=== PATIENT | female | born 2000 | race African-American/Black ===

== ENCOUNTER 2021-12-29 02:37 | Emergency (ER) | payer OTHER ==
[~2021-12-29] VITALS: Ht 165.1 cm; Wt 61.9 kg
[2021-12-29 02:49] VITALS: BP 116/73
[2021-12-29] MEDS ORDERED: LIDOCAINE MPF 1% 15 ML ONE (02:58)
--- NOTE | 2021-12-29 03:02 | NUR ---
RECEIVED VERBAL ORDER FOR 150MG OF LIDOCAINE 1% TO NUMB SITE. PT IN [facility] PERFORMING PROCEDURE THERE.
--- NOTE | 2021-12-29 03:05 | NUR ---
The patient's care was reviewed and supervised by Yessy Cox RN, RN.
[2021-12-29] MEDS ORDERED: LIDOCAINE MPF 1% 10 MG/ML VIAL INJ ONE (03:10)
[2021-12-29] MEDS ORDERED: AMOXICILLIN 500 MG CAP PO ONE (03:10)
[2021-12-29] MEDS ORDERED: IBUP-2218 PO (03:11)
[2021-12-29] MEDS ORDERED: AMOX-999 PO (03:11)
--- NOTE | 2021-12-29 03:27 | NUR ---
Patient discharged with v/s stable. Written and verbal after care instructions given and explained. Patient alert, oriented and verbalized understanding of instructions. Ambulatory with steady gait. All questions addressed prior to discharge. ID band removed. Patient advised to follow up with PMD. Rx of IBUPROFEN AND AMOXICILLIN given. Patient educated on indication of medication including possible reaction and side effects. Opportunity to ask questions provided and answered.
== END 2021-12-29 03:27 | disposition home or self-care (01) ==
LOC: MED 02:37
DX: K08.89 Other specified disorders of teeth and supporting structures (principal); Z79.899 Other long term (current) drug therapy
CPT/HCPCS: 64400; 99284; J2001